=== PATIENT | female | born 1995 | race African-American/Black ===

== ENCOUNTER 2018-06-18 11:45 | Inpatient (IN) | payer MEDICARE, OTHER ==
[~2018-06-18] VITALS: Ht 157.5 cm; Wt 61.0 kg
[2018-06-18] MEDS ORDERED: IV NORMAL SALINE 1,000ML 1,000 ML IV ONE (12:15)
[2018-06-18 12:29] LABS: BASO # 0.1 x10^3/uL (0.0-0.2); BASO % 1 % (0-3); EOS # 1.3 x10^3/uL (0.0-0.7); EOS % 12 % (0-3); HEMATOCRIT 35.9 % (36.0-47.0); HEMOGLOBIN 12.1 g/dL (12.0-15.5); LYMPH # 1.7 x10^3/uL (1.0-4.8); LYMPH % 16 % (24-48); MEAN CORPUSCULAR HEMOGLOBIN 27 pg (25-35); MEAN CORPUSCULAR HGB CONC 34 g/dL (31-37); MEAN CORPUSCULAR VOLUME 81 fL (79-100); MONO # 0.5 x10^3/uL (0.0-1.1); MONO % 5 % (0-9); NEUT # 6.8 x10^3uL (1.8-7.7); NEUT % 66 % (31-73); PLATELET COUNT 354 x10^3/uL (140-400); RED BLOOD COUNT 4.43 x10^6/uL (3.50-5.40); RED CELL DISTRIBUTION WIDTH 14.6 % (11.5-14.5); WHITE BLOOD COUNT 10.3 x10^3/uL (4.0-11.0)
[2018-06-18 12:43] LABS: ALBUMIN/GLOBULIN RATIO 0.8 (1.0-1.7); CREATININE 0.8 mg/dL (0.6-1.0); GFR 89.7; TOTAL BILIRUBIN 0.3 mg/dL (0.2-1.0)
[2018-06-18 12:44] LABS: BILIRUBIN,URINE NEG (NEG); CLARITY,URINE HAZY; COLOR,URINE AMBER; GLUCOSE,URINE NEG (NEG); NITRITE,URINE NEG (NEG); UROBILINOGEN,URINE 1 mg/dL (0.2 mg/dL)
[2018-06-18 12:45] LABS: POTASSIUM 2.1 mmol/L (3.5-5.1)
[2018-06-18 12:45] LABS: BACTERIA,URINE 0 /HPF (0-FEW); HYALINE CASTS, URINE OCC /HPF; RBC,URINE RARE /HPF (0-2); SQUAMOUS EPITHELIAL CELL,UR FEW /LPF
--- NOTE | 2018-06-18 12:46 | PHYS DOC ---
Past History Past Medical History: Seizure, Other Past Surgical History: No Surgical History Alcohol Use: None Drug Use: None Adult General Chief Complaint Chief Complaint: MULTIPLE COMPLAINTS HPI HPI 22-year-old female with special needs presents with change in behavior. Her parents accompany her and provide the entire history. The patient has been "leaning to the left" since waking up this morning. She is leaning so far she is not able to keep her balance. They have not let her walk for fear that she would fall down. She had some minor drooling out of the left side of her mouth, but this seems to have improved at this time. The patient has not acted like this before. She has not been complaining of any specific pain. She is communicating and following their commands at baseline. The patient has had no recent medication changes. She has not had any trauma or falls. She has not had any other symptoms of illness. No fever or chills. Review of Systems Review of Systems Constitutional: Denies fever or chills [] Eyes: Denies change in visual acuity, redness, or eye pain [] HENT: Denies nasal congestion or sore throat [] Respiratory: Denies cough or shortness of breath [] Cardiovascular: No additional information not addressed in HPI [] GI: Denies abdominal pain, nausea, vomiting, bloody stools or diarrhea [] : Denies dysuria or hematuria [] Musculoskeletal: Denies back pain or joint pain [] Integument: Denies rash or skin lesions [] Neurologic: Denies headache, focal weakness or sensory changes. Leaning to the left side [] Endocrine: Denies polyuria or polydipsia [] All other systems were reviewed and found to be within normal limits, except as documented in this note. Current Medications Current Medications Current Medications Medications (Trade) Dose Ordered Sig/[place] Start Time Stop Time Status Last Admin Dose Admin Sodium Chloride 1,000 ml @ 1,000 mls/hr 1X ONCE 06/18/18 12:15 06/18/18 13:14 06/18/18 12:26 1,000 MLS/HR Allergies Allergies Allergies Coded Allergies Type Severity Reaction Last Updated Verified codeine Allergy Unknown 06/18/18 Yes ibuprofen Allergy Unknown 06/18/18 Yes Physical Exam Physical Exam Constitutional: Well developed, well nourished, no acute distress, non-toxic appearance. [] HENT: Normocephalic, atraumatic, bilateral external ears normal, oropharynx moist, no oral exudates, nose normal. [] Eyes: PERRLA, EOMI, conjunctiva normal, no discharge. [] Neck: Normal range of motion [] Cardiovascular:Heart rate regular rhythm, no murmur [] Lungs & Thorax: Bilateral breath sounds clear to auscultation [] Abdomen: Bowel sounds normal, soft, no tenderness, no masses, no pulsatile masses. [] Skin: Warm, dry, no erythema, no rash. [] Back: No tenderness. [] Extremities: No tenderness, no cyanosis, no clubbing, no edema. [] Neurologic: Alert, moves all extremities spontaneously and to command, no focal deficits noted. [] Psychologic: Affect normal, mood normal. [] Current Patient Data Vital Signs Vital Signs Date Time Temp Pulse Resp B/P (MAP) Pulse Ox O2 Delivery O2 Flow Rate FiO2 06/18/18 12:02 98.6 97 18 98 Room Air Lab Results Laboratory Tests Test 06/18/18 12:16 White Blood Count 10.3 x10^3/uL (4.0-11.0) Red Blood Count 4.43 x10^6/uL (3.50-5.40) Hemoglobin 12.1 g/dL (12.0-15.5) Hematocrit 35.9 % (36.0-47.0) L Mean Corpuscular Volume 81 fL (79-100) Mean Corpuscular Hemoglobin 27 pg (25-35) Mean Corpuscular Hemoglobin Concent 34 g/dL (31-37) Red Cell Distribution Width 14.6 % (11.5-14.5) H Platelet Count 354 x10^3/uL (140-400) Neutrophils (%) (Auto) 66 % (31-73) Lymphocytes (%) (Auto) 16 % (24-48) L Monocytes (%) (Auto) 5 % (0-9) Eosinophils (%) (Auto) 12 % (0-3) H Basophils (%) (Auto) 1 % (0-3) Neutrophils # (Auto) 6.8 x10^3uL (1.8-7.7) Lymphocytes # (Auto) 1.7 x10^3/uL (1.0-4.8) Monocytes # (Auto) 0.5 x10^3/uL (0.0-1.1) Eosinophils # (Auto) 1.3 x10^3/uL (0.0-0.7) H Basophils # (Auto) 0.1 x10^3/uL (0.0-0.2) EKG EKG Sinus rhythm, rate 96, normal axis, no ST elevations or depressions, prolonged QTC.[] Radiology/Procedures Radiology/Procedures [] Impressions: EXAM: Head CT without contrast. HISTORY: Mental status changes. TECHNIQUE: Computed tomographic images of the head were obtained without contrast. *One or more of the following individualized dose reduction techniques were utilized for this examination: 1. Automated exposure control. 2. Adjustment of the mA and/or kV according to patient size. 3. Use of iterative reconstruction technique. COMPARISON: None. FINDINGS: There is no acute or subacute extra-axial or intraparenchymal hemorrhage. There is no mass effect or midline shift. There is no hydrocephalus. The espinosa-white matter differentiation pattern is intact. There is focal mucosal thickening or mucous retention cyst within the right aspect of the sphenoid sinus. The mastoid air cells are clear. No calvarial lesion is seen. IMPRESSION: No acute intracranial findings. Electronically signed by: Val Harrington MD (06/18/2018 1:35 PM) [place] [id number] DICTATED AND SIGNED BY: VAL HARRINGTON MD DATE: 06/18/18 1335 CC: GILMER TOVAR DO ~ Course & Med Decision Making Course & Med Decision Making Pertinent Labs and Imaging studies reviewed. (See chart for details) The patient's labs are significant for a potassium of 2.1. We will give her 40 mEq of her placement orally as well as 40 mEq by IV. Her head CT is negative for acute findings. The rest of her labs are unremarkable. Her urinalysis is negative for infection. After further discussion with the parents, I believe will be safest to admit the patient overnight to ensure that her potassium level is corrected and that her symptoms resolved. Parents have agreed with this plan. I discussed the case with Dr. Huitron and he has accepted the patient for admission. [] Dragon Disclaimer Dragon Disclaimer This electronic medical record was generated, in whole or in part, using a voice recognition dictation system. GILMER TOVAR DO Jun 18, 2018 12:46
[2018-06-18] MEDS ORDERED: POTASSIUM CL 40MEQ IN 0.9%NACL 1,000 ML IV ONE ×2 (13:00→17:00)
[2018-06-18] MEDS ORDERED: POTASSIUM CHLORIDE 20 MEQ/15 ML ORAL LIQUID. PO ONE (13:00)
[2018-06-18] MEDS ORDERED: POTASSIUM CHLORIDE 20 MEQ TABLET.ER. PO ONE (13:00)
--- NOTE | 2018-06-18 13:38 | RAD ---
EXAM: Head CT without contrast. HISTORY: Mental status changes. TECHNIQUE: Computed tomographic images of the head were obtained without contrast. *One or more of the following individualized dose reduction techniques were utilized for this examination: 1. Automated exposure control. 2. Adjustment of the mA and/or kV according to patient size. 3. Use of iterative reconstruction technique. COMPARISON: None. FINDINGS: There is no acute or subacute extra-axial or intraparenchymal hemorrhage. There is no mass effect or midline shift. There is no hydrocephalus. The espinosa-white matter differentiation pattern is intact. There is focal mucosal thickening or mucous retention cyst within the right aspect of the sphenoid sinus. The mastoid air cells are clear. No calvarial lesion is seen. IMPRESSION: No acute intracranial findings. Electronically signed by: Val Harkins MD (06/18/2018 1:35 PM) [place] [id number]
[2018-06-18] MEDS ORDERED: ACETAMINOPHEN 325 MG TABLET PO PRN (15:15)
[2018-06-18 16:36] VITALS: BP 135/93
[2018-06-18] MEDS ORDERED: MONT10TA9 PO (16:49)
[2018-06-18] MEDS ORDERED: CLON0.1T PO ×2 (16:49)
[2018-06-18] MEDS ORDERED: VALP250S3 PO (16:49)
[2018-06-18] MEDS ORDERED: LEVE100S18 PO ×2 (16:49)
[2018-06-18] MEDS ORDERED: TRAZ150T49 PO (16:49)
[2018-06-18] MEDS ORDERED: HALO5TAB PO (16:49)
[2018-06-18] MEDS ORDERED: BENZ1TAB5 PO (16:49)
[2018-06-18] MEDS ORDERED: DIAZ5TAB4 PO (16:49)
[2018-06-18 20:00] VITALS: BP 131/85
[2018-06-18] MEDS: traZODone 150 MG TABLET. PO SCH (21:25)
[2018-06-18] MEDS: cloNIDine HCL 0.1 MG TABLET PO SCH (21:25)
[2018-06-18] MEDS: VALPROATE ACID 250 MG/5 ML ORAL SOLUTION PO SCH (21:25)
[2018-06-18] MEDS: diazePAM 5 MG TABLET PO SCH (21:26)
[2018-06-18] MEDS: BENZTROPINE MESYLATE 1 MG TABLET PO SCH (21:26)
[2018-06-18 22:56] VITALS: BP 120/86
[2018-06-19 05:11] VITALS: BP 127/83
[2018-06-19 06:20] LABS: CALCIUM 8.9 mg/dL (8.5-10.1); CREATININE 0.6 mg/dL (0.6-1.0); GFR 151.3
[2018-06-19 06:22] LABS: BASO % 0 % (0-3); EOS # 1.8 x10^3/uL (0.0-0.7); EOS % 22 % (0-3); HEMATOCRIT 34.6 % (36.0-47.0); HEMOGLOBIN 11.5 g/dL (12.0-15.5); LYMPH # 2.6 x10^3/uL (1.0-4.8); LYMPH % 32 % (24-48); MEAN CORPUSCULAR HEMOGLOBIN 27 pg (25-35); MEAN CORPUSCULAR HGB CONC 33 g/dL (31-37); MEAN CORPUSCULAR VOLUME 81 fL (79-100); MONO # 0.6 x10^3/uL (0.0-1.1); MONO % 7 % (0-9); NEUT # 3.2 x10^3uL (1.8-7.7); NEUT % 39 % (31-73); PLATELET COUNT 335 x10^3/uL (140-400); RED BLOOD COUNT 4.26 x10^6/uL (3.50-5.40); RED CELL DISTRIBUTION WIDTH 14.4 % (11.5-14.5); WHITE BLOOD COUNT 8.2 x10^3/uL (4.0-11.0)
[2018-06-19 06:25] LABS: POTASSIUM 2.4 mmol/L (3.5-5.1)
[2018-06-19] MEDS: POTASSIUM CHLORIDE 20 MEQ/15 ML ORAL LIQUID. PO SCH ×6 (08:22→16:00)
[2018-06-19] MEDS: MONTELUKAST 10 MG TABLET. PO SCH (08:22)
[2018-06-19] MEDS: VALPROATE ACID 250 MG/5 ML ORAL SOLUTION PO SCH ×2 (08:23→20:50)
[2018-06-19] MEDS: diazePAM 5 MG TABLET PO SCH ×5 (08:23→20:51)
[2018-06-19] MEDS: cloNIDine HCL 0.1 MG TABLET PO SCH ×3 (08:23→20:51)
[2018-06-19] MEDS: HALOPERIDOL 5 MG TABLET PO SCH ×2 (08:24→15:19)
[2018-06-19 11:02] VITALS: BP 126/87
[2018-06-19] MEDS ORDERED: POTASSIUM CL 40MEQ D5-0.45NACL 1,000 ML IV SCH (15:00)
[2018-06-19 15:11] VITALS: BP 132/89
[2018-06-19 18:16] LABS: CALCIUM 8.7 mg/dL (8.5-10.1); CREATININE 0.7 mg/dL (0.6-1.0); GFR 126.6; POTASSIUM 4.3 mmol/L (3.5-5.1)
[2018-06-19 19:00] VITALS: BP 126/88
--- NOTE | 2018-06-19 19:04 | HP ---
ADMIT DATE: 06/19/2018 HISTORY OF PRESENT ILLNESS: The patient is a 22-year-old -[place] female patient who has moved recently from [place] to live with her sister as her mother has recently . She has mental impairment, does not give any useful information; however, according to her [id number], she normally is able to walk straight although with a very slow pace; however, they noted that she was leaning towards the left side. I contacted her primary care physician at the [place] who recommended that she should be seen in the Emergency Room and she was in fact evaluated in the Emergency Room, had extensive lab work, which showed that her potassium was extremely low at 2.1. However, all other lab works are within acceptable range. She had a CT scan of the head that was unremarkable and she was basically admitted to replenish her potassium. PAST MEDICAL HISTORY: Cognitive impairment as well as seizure disorder. PAST SURGICAL HISTORY: Unremarkable. ALLERGIES: She is allergic to CODEINE, AND IBUPROFEN. MEDICATIONS: She is currently on following medications: She is on clonidine 0.1 mg twice a day, breakfast and lunch and clonidine 2 tablets at bedtime. She is on levetiracetam, she takes 1250 mg daily and 1500 mg at bedtime. She is on valproic acid 2500 mg twice a day, trazodone 450 mg at bedtime. She is on Haldol 5 mg twice a day, diazepam 7.5 mg 4 times a day, benztropine 1 mg at bedtime. She is on montelukast 10 mg daily. FAMILY HISTORY: Her mother was alcoholic and recently. The cause of is not clear. SOCIAL HISTORY: She is single, never , does not smoke, drink alcohol or use any recreational drugs. REVIEW OF SYSTEMS: Unobtainable. PHYSICAL EXAMINATION: GENERAL: On arrival to the Emergency Room, she looked well and was clearly in no apparent respiratory distress, slightly pale, but no jaundice, cyanosis, or thyromegaly. No jugular venous distension. No limb edema. VITAL SIGNS: Her heart rate was 97, blood pressure was 125/75. Her temperature was 98.6, respiratory rate was 18 and oxygen saturation was 98%. HEAD, EYES, EARS, NOSE AND THROAT: Showed normocephalic, atraumatic. NECK: Supple. HEART: Showed normal first and second heart sounds with no gallop, rub or murmur. CHEST: Clear to auscultation. No crepitation or rhonchi. ABDOMEN: Distended, soft, nontender. No guarding or rigidity. No organomegaly. All hernial orifices intact. Bowel sounds normal. NEUROLOGIC: She is awake, alert, seemed to probably able to see, although she does not retract, all her cranial nerves are grossly intact. EXTREMITIES: She moves extremities without difficulty. She continued to have tendency to lean towards the left side. LABORATORY DATA: On admission showed that her white cell count was 10,300, hemoglobin 12, hematocrit 36, MCV 81 and platelet count 354,000. Her chemistry showed a serum sodium 143, potassium 2.1, chloride 102, bicarbonate 33, anion gap of 8, BUN 3, creatinine 0.8, estimated GFR was 90 mL per minute. Her glucose 120, calcium was 9. Total bilirubin, AST, ALT, alkaline phosphatase were normal. Total protein was 7, albumin 3. Her urinalysis showed the urine was hazy with a pH of 7, specific gravity of 1.015. There was small amount of protein, negative for glucose, there was trace of ketones. The urine was negative for blood, nitrite, bilirubin. There was a trace of leukocyte esterase. There are rare rbc's, 5-10 wbc's and very few bacteria. ASSESSMENT AND PLAN: In summary, this is a 22-year-old -[place] female patient who came in with a tendency to lean to the left side, inability to walk. She was found to be extremely hypokalemic with a potassium of She is known to have seizures for which she is on Keppra as well as valproic acid Hypertension as well as protein-calorie malnutrition, transpired that she does not eat any solid food or even at pureed diet, though anything she drinks in a liquid diet and therefore we will also consult our dietitian to assist with her diet. with her diet. We will continue to replenish her potassium both orally IV and I would also consult Dr. Erwin, although her CT scan was normal. Low potassium can cause muscle weakness, but it should not be localized. RAIZA HAN MD DR: OPAL/jatin JOB#: [id number] / [id number]
[2018-06-19] MEDS: BENZTROPINE MESYLATE 1 MG TABLET PO SCH (20:50)
[2018-06-19] MEDS: traZODone 150 MG TABLET. PO SCH (20:50)
[2018-06-19 23:00] VITALS: BP 127/67
--- NOTE | 2018-06-20 00:02 | PN ---
DATE: 06/19/2018 SUBJECTIVE: The patient was admitted yesterday as she was noted by her family to be leaning to the left side. She was extensively investigated in the Emergency Room and found CT scan was unremarkable. Her family denied any witnessed seizure; however, she was found to be profoundly hypokalemic with the potassium of only 2.1. It transpired that she does not eat any solid food or even diet and she only drinks a liquid diet, mostly Ensure and other juices and water, and there was no documented history of nausea, vomiting or diarrhea. She is not on any diuretics. Apparently, according to her [id number], she was found to have hypokalemia before as she used to live with her mom in [place]., She was given oral potassium and IV potassium as her potassium was only 2.1 on arrival and the repeat potassium this morning was still low at 2.4 mEq per liter, although all her kidney functions are normal. PHYSICAL EXAMINATION: GENERAL: When I saw her this afternoon, she was resting, slightly propped up in bed, in no apparent respiratory distress, slightly pale, but no jaundice, cyanosis, or thyromegaly. No jugular venous distension. No lower limb edema. VITAL SIGNS: Her heart rate was 72, blood pressure was 126/87, temperature was 98, respiratory rate was 20, and oxygen saturation was 96%. HEENT: Examination of the head, eyes, ears, nose and throat showed normocephalic, atraumatic. NECK: Supple. HEART: Showed normal first and second sounds. No gallop, rub or murmur. CHEST: Clear to auscultation. No crepitation or rhonchi. ABDOMEN: Distended, soft, nontender. NEUROLOGIC: She is nonverbal, but all her cranial nerves seem to be grossly intact. EXTREMITIES: She moves her extremities spontaneously, although she continued to even in bed to lean towards the left side, although she does not show any evidence of localized weakness. LABORATORY DATA: Her lab work this morning showed a white cell count of 8200, hemoglobin 11.5, hematocrit 34, MCV 81, and platelet count of 335,000. Her chemistry showed a serum sodium 146, potassium 2.4, chloride 110, bicarbonate 29, anion gap of 7, BUN 1, creatinine 0.6, estimated GFR was 151 mL per minute. Her glucose was 80, calcium was 8.9. ASSESSMENT AND PLAN: 1. Profound hypokalemia, most likely due to severe inadequate potassium in her diet as she is not taking any solid food or even a pureed diet. 3. Recent tendency to lean towards the left side, although the CT scan was normal and hypokalemic with generalized weakness. 3. Seizure disorder, whether she has recent seizure or this is a manifestation of ____ difficult to know. 4. Cognitive impairment. 5. Protein-calorie malnutrition. Her serum albumin is only 3 g/dL, so I did consult with the dietitian and neurologist, Dr. Erwin, who will continue to replenish her potassium with orally and IV. We will repeat her lab work this afternoon and again tomorrow morning. RAIZA HAN MD DR: OPAL/jatin JOB#: [id number] / [id number]
[2018-06-20 05:00] VITALS: BP 132/84
[2018-06-20 07:07] LABS: CALCIUM 9.3 mg/dL (8.5-10.1); CREATININE 0.6 mg/dL (0.6-1.0); GFR 151.3; POTASSIUM 3.5 mmol/L (3.5-5.1)
[2018-06-20] MEDS: VALPROATE ACID 250 MG/5 ML ORAL SOLUTION PO SCH ×2 (09:39→20:56)
[2018-06-20] MEDS: cloNIDine HCL 0.1 MG TABLET PO SCH ×3 (09:39→20:58)
[2018-06-20] MEDS: MONTELUKAST 10 MG TABLET. PO SCH (09:40)
[2018-06-20] MEDS: diazePAM 5 MG TABLET PO SCH ×4 (09:40→20:57)
[2018-06-20] MEDS: HALOPERIDOL 5 MG TABLET PO SCH ×2 (09:40→15:06)
[2018-06-20] MEDS: POTASSIUM CHLORIDE 20 MEQ TABLET.ER. PO SCH ×3 (12:12→20:55)
[2018-06-20 12:27] VITALS: BP 115/81
[2018-06-20 15:00] VITALS: BP 125/87
[2018-06-20 19:00] VITALS: BP 131/92
--- NOTE | 2018-06-20 20:09 | PN ---
DATE: 06/20/2018 SUBJECTIVE: The patient was admitted yesterday as her family, her sister and [id number] noted that she has tendency to lean to the left side. She was evaluated in the Emergency Room, she was found to have profound hypokalemia with the potassium was only 2.1. Her CT scan was unremarkable and we did replenish her potassium. In fact, her potassium yesterday was up to 4.3, although this morning it dropped down to 3.4. She was evaluated by the physical therapist and apparently she is able to walk, but still has a tendency lean to the left side. She is on a lot of medications, she takes diazepam 7.5 mg 4 times a day and she is also on Haldol 5 mg twice a day and I am wondering whether this is contributing to her perhaps ataxia in coordination, I did consult Dr. Erwin for her to see her. I do not know whether she would require also an MRI. When I saw her this morning, she was resting slightly propped up, sleeping comfortably in bed, in no apparent distress. Her sister denied any complaint. OBJECTIVE: GENERAL: When I examined her, she was slightly pale, but no jaundice, cyanosis, or thyromegaly. No jugular venous distension. No lower limb edema. VITAL SIGNS: Her heart rate was 78, blood pressure 132/84, temperature was 97.6, respiratory rate 20, and oxygen saturation was 94%. HEENT: Examination of the head, eyes, ears, nose and throat showed normocephalic, atraumatic. NECK: Supple. HEART: Showed normal first and second heart sounds. No gallop, rub or murmur. CHEST: Clear to auscultation. No crepitation or rhonchi. ABDOMEN: Was scaphoid, soft, nontender. NEUROLOGIC: She is sleepy, but arousable. All her cranial nerves are grossly intact. EXTREMITIES: She moves her extremities without difficulty. According to her family, she is able to walk without a walker. Her intake over the last 24 hours was 2100, output was 350. LABORATORY DATA: Her lab work this morning showed a serum sodium 144, potassium 3.5, chloride 110, bicarbonate 27, anion gap of 7, BUN 1, creatinine 0.6, estimated GFR was 151 mL per minute. Her glucose 77 and calcium was 9.3. Her white cell count was 8200, hemoglobin 11, hematocrit 35, MCV 81, and platelet count of 335,000. ASSESSMENT: 1. Profound hypokalemia, most likely severe and inadequate potassium intake as she lives actually on liquid, does not take any solids or even pureed diet. 2. Recent tendency to lean towards the left side, although a CT scan was normal, hypokalemia ____ generalized weakness. 3. Seizure disorder and then family are not aware of any recent seizure. 4. Cognitive impairment. 5. Protein-calorie malnutrition, serum albumin is only 3 g/dL. PLAN: My plan is to continue with potassium supplement, I started him 40 mEq 3 times a day. She actually received a total of more than 160 mEq yesterday and her potassium dropped down again from 4.3-3.5. If we check it again tomorrow and might have to add spironolactone and I did consult dietitian. Unfortunately, she was not available yesterday. RAIZA HAN MD DR: OPAL/jatin JOB#: [id number] / [id number]
[2018-06-20] MEDS: traZODone 150 MG TABLET. PO SCH (20:56)
[2018-06-20] MEDS: BENZTROPINE MESYLATE 1 MG TABLET PO SCH (20:57)
[2018-06-20 23:00] VITALS: BP 124/79
--- NOTE | 2018-06-21 03:24 | PN ---
DATE: 06/20/2018 SUBJECTIVE: The patient has not had any new medical or neurological complaints. She slept and ate well. No recent falls or injuries. No breakthrough seizure. OBJECTIVE: GENERAL: Well-developed, well-nourished -[place] female, not in acute distress. VITAL SIGNS: Blood pressure 150/81, respiratory rate 20, pulse is 75, temperature is 97.6, oxygen saturation is 94% on room air. HEENT: Normocephalic, atraumatic, otherwise unremarkable. NECK: Supple. Negative for carotid bruit, lymphadenopathy or thyromegaly. LUNGS: Clear to A and P. CARDIOVASCULAR: Regular rhythm, normal S1, S2. ABDOMEN: Soft. Bowel sounds positive. EXTREMITIES: Negative for cyanosis, clubbing or pitting edema. NEUROLOGICAL EXAM: 1. Mental Status: The patient is alert, follow 1-step commands. She does not communicate. She keeps her eyes closed during the interview. She appears to be somewhat anxious. 2. Cranial nerves: No facial, motor or sensory deficit. Hearing appears to be intact, otherwise unchanged. 3. Motor examination: No focal or muscle bulk was seen. The tone is normal. The strength is 4/5 throughout. Sensory examination revealed normal pinprick and light touch senses throughout. Deep tendon reflexes were symmetric and hypoactive without pathology responses. Gait: The patient appears to be walking better than yesterday and in no obvious tilting to the left side today. IMPRESSION: 1. Long history of cognitive dysfunction. 2. Recent gait disturbance-improved. 3. Multiple medical problems include hypertension, seizure disorder, urinary tract infections. 4. Multiple psychiatric problems include depressions, anxiety, bipolar disorder, and possible autism. RECOMMENDATIONS: Continue with current home medications and continue with her treatment initiated by Dr. Huitron. The patient is neurologically stable. M Marc BLAS MD DR: KAELYN/jatin JOB#: [id number] / [id number]
--- NOTE | 2018-06-21 04:24 | CONS ---
DATE OF CONSULTATION: 06/19/2018 NEUROLOGIC CONSULTATION REFERRING PHYSICIAN: Dr. Huitron. REASON FOR CONSULTATION: Difficulty to walk and tendency to fall. HISTORY OF PRESENT ILLNESS: This is a 22-year-old right-handed female was admitted through Emergency Room on account of having difficulty to communicate, mental status changes in the last few days along with a tendency to fall as she has been tilting to the left side during walking. The patient has been requiring a special need and possible has baseline cognitive dysfunction, therefore she is not able to communicate and provide any history; however, her [id number]-yrg was present in the room and told me that she has had mental status changes in the last 24 hours. She has been under extreme stress as her mother 2 weeks ago. The patient is a resident of [place] and she moved recently to live with her sister. She has had a history of seizure disorder, but apparently she has not been witnessed having seizure prior to this admission. The patient was evaluated in the Emergency Room and had extensive blood workup, which revealed significant low potassium in her system. Initial nonenhanced head CT scan revealed no evidence of acute intracranial process. There is no reported history of recent head injuries or fall or recent illnesses. PAST MEDICAL HISTORY: Significant for cognitive dysfunction and a history of a seizure disorder. She has not had a seizure over the last several years. Hypertension, colitis, urinary tract infections, multiple psychiatric problems include depressions, anxiety, and possible autism. SOCIAL HISTORY: The patient has no history of smoking, alcohol drinking, or illicit drug use. FAMILY HISTORY: Noncontributory. However, her mother was alcoholic and she recently, probably from complication of liver disease secondary to alcoholism. Her mother had hypertension and cirrhosis of the liver. She from cardiac arrest and had alcohol abuse. CURRENT MEDICATIONS: Potassium 40 mEq t.i.d., ____ daily, levetiracetam 1250 mg p.o. twice daily, haloperidol 5 mg b.i.d. for psychotic features, clonidine 0.1 mg daily, valproic acid 500 mg b.i.d., trazodone 450 mg at bedtime, Cogentin 1 mg at bedtime, clonidine 0.2 mg at bedtime, diazepam 7.5 mg 4 times daily. ALLERGIES: IBUPROFEN AND CODEINE. REVIEW OF SYSTEMS: A 10-point review of system was performed as mentioned above in history of present illness. PHYSICAL EXAMINATION: GENERAL: Well-developed and well-nourished -British female, not in acute distress. She weighs 134.5 pounds. VITAL SIGNS: Blood pressure 126/88, respiratory rate 20, pulse is 86 and regular, temperature is 97.9, and oxygen saturation 99% on room air. HEENT: Normocephalic and atraumatic, otherwise unremarkable. NECK: Supple. Negative for carotid bruit, lymphadenopathy or thyromegaly. LUNGS: Clear to A and P. CARDIOVASCULAR: Regular rhythm, normal S1, S2. There is no S3, S4, or murmur. ABDOMEN: Soft. Bowel sounds positive. EXTREMITIES: Negative for cyanosis, clubbing or pitting edema. NEUROLOGIC: The patient is alert, follows 1-step commands, but unable to see or communicate. Memory, judgment, and abstract thinking are poor. Cranial nerves: The patient does not open her eyes. There is no obvious facial asymmetry. The rest of the cranial nerves are difficult to evaluate at this time. Motor: No focal muscle bulk was seen. The tone was normal. The strength was 4/5 throughout. Sensory: Sensory examination revealed normal pinprick and light touch senses throughout. Deep tendon reflexes were symmetric and hypoactive with absent Achilles responses. Gait: The tandem gait is difficult. The patient does not open eyes when she moves and had tendency to fall as she sometimes walks fast. However, the patient was given diazepam 2 hours prior to this evaluation. LABORATORY DATA: CBC revealed white cells of 8200, hemoglobin 11.5, hematocrit 34.6, and platelet count 335,000. Chemistry revealed sodium of 141, potassium 4.3, chloride 109, CO2 of 25, BUN 1, creatinine 0.7, glucose 75, and calcium 8.7. Urinalysis is trace urinary leukocyte esterase with white blood cells of 5-10 and 0 bacteria. Initial nonenhanced head CT scan revealed no acute intracranial process and no evidence of hydrocephalus or other pathology. However, it showed some retention cyst in the right aspect of the sphenoid sinus. IMPRESSION: 1. Long history of cognitive dysfunction. 2. Abnormal gait and tendency to fall; however, the symptoms have improved since admission. Two hours prior to this evaluation, the patient was given Valium. 3. Multiple psychiatric problems including depression and anxiety. 4. Mild anemia of chronic type, hypokalemia - corrected, history of seizure disorder and no recent breakthrough seizure. 5. Recent urinary tract infections. 6. Depression, anxiety, bipolar disorder, and hypertension. RECOMMENDATIONS: 1. Continue with current management initiated by Dr. Huitron. 2. Physical therapy and evaluate her gait. 3. We will continue with current home medications and avoid excessive use of diazepam as possible. M Marc BLAS MD DR: KAELYN/jatin JOB#: [id number] / [id number]
[2018-06-21 05:00] VITALS: BP 125/84
[2018-06-21] MEDS: VALPROATE ACID 250 MG/5 ML ORAL SOLUTION PO SCH (09:21)
[2018-06-21] MEDS: diazePAM 5 MG TABLET PO SCH ×2 (09:21→12:00)
[2018-06-21] MEDS: POTASSIUM CHLORIDE 20 MEQ TABLET.ER. PO SCH ×2 (09:22→13:04)
[2018-06-21] MEDS: HALOPERIDOL 5 MG TABLET PO SCH (09:24)
[2018-06-21] MEDS: cloNIDine HCL 0.1 MG TABLET PO SCH ×2 (09:24→12:00)
[2018-06-21] MEDS: MONTELUKAST 10 MG TABLET. PO SCH (09:27)
[2018-06-21 11:05] VITALS: BP 103/65
[2018-06-21 11:44] LABS: CALCIUM 10.1 mg/dL (8.5-10.1); CREATININE 0.6 mg/dL (0.6-1.0); GFR 151.3; MAGNESIUM 1.9 mg/dL (1.8-2.4); POTASSIUM 4.6 mmol/L (3.5-5.1)
[2018-06-21 12:00] VITALS: BP 103/65
[2018-06-21] MEDS ORDERED: POTA20TA4 PO (12:22)
--- NOTE | 2018-06-21 12:49 | PN ---
DATE: 06/21/2018 SUBJECTIVE: The patient is autistic. She has no new medical or neurological complaints reported. OBJECTIVE: GENERAL APPEARANCE: Well-developed, well-nourished -Maltese female, not in acute distress. VITAL SIGNS: Blood pressure 103/65, respiratory rate 18, pulse is 88 with a temperature 97.4, oxygen saturation is 89%. HEENT: Normocephalic, atraumatic, otherwise unremarkable. NECK: Supple. Negative for carotid bruit, lymphadenopathy or thyromegaly. LUNGS: Clear to A and P. CARDIOVASCULAR: Regular rhythm, normal S1, S2. ABDOMEN: Soft, bowel sounds positive. EXTREMITIES: Negative for cyanosis, clubbing or edema. NEUROLOGIC: Mental status: The patient is autositic. She follows 1-step commands. She opens eyes to the verbal commands, but she is not cooperative with eye examination. There is no facial motor or sensory deficit. Hearing appears to be intact. The palate elevated symmetrically. Sternocleidomastoid muscles are powerful bilaterally. The patient showed facial dissymmetry, protrudes her tongue in midline without fasciculation or atrophy. Motor examination: No focal muscle bulk was seen. The tone is normal. Strength is 5/5 throughout. Sensory examination revealed normal pinprick and light touches throughout. Deep tendon reflexes symmetric and active without pathology responses. Gait is normal. LABORATORY DATA: Chemistry revealed sodium 139, potassium 4.6, chloride 108, CO2 of 23, BUN 3, creatinine 0.6, glucose is 101 and calcium 10.1, magnesium 1.9. IMPRESSION: 1. History of autism and recent mental status changes. 2. Medical problems include hypertension, seizure disorder and urinary tract infections. 3. Multiple psychiatric problems include depression, anxiety and bipolar. RECOMMENDATION: 1. Continue with current management as initiated by Dr. Huitron. 2. The patient is neurologically stable and no further neurological evaluation is needed. M Marc BLAS MD DR: KAELYN/jatin JOB#: [id number] / [id number]
--- NOTE | 2018-06-21 13:00 | DS ---
DATE OF DISCHARGE: 06/21/2018 HOSPITAL COURSE: The patient is a 22-year-old -[place] female patient, who was brought by her sister and [id number] to the Emergency Room as she has tendency to lean towards the left side. She was extensively investigated in the Emergency Room. CT scan and clinical exam was unremarkable; however, she was found to be profoundly hypokalemic with potassium of 2.1. She only drinks liquids, does not eat any solids or even pureed diet; however, she is not on any diuretics. There is no history of nausea, vomiting or diarrhea. She is not on any diuretics. We started her on IV fluid with potassium as well as oral and her potassium is gradually risen from 2.1-2.4-4.3, dropped down to 3.5 and yesterday we gave her 40 mEq 3 times a day and her potassium early this morning to 4.6 mEq per liter. She was seen by the physical therapist and she has been able to walk. Her other lab work seems to be stable. She is on large amount of diazepam and apparently the family was instructed to taper it down slowly. She seemed to be excessively sedated at times. PHYSICAL EXAMINATION: GENERAL: When I saw her this morning, she was resting, slightly propped up in bed, sleeping comfortably. She is pale, but no jaundice or cyanosis. No lymphadenopathy, no thyromegaly. No jugular venous distention. No limb edema. VITAL SIGNS: Her heart rate was 80, blood pressure 103/65, temperature was 97.4, respiratory rate was 18 and oxygen saturation was 99%. HEAD, EYES, EARS, NOSE AND THROAT: Normocephalic, atraumatic. NECK: Supple. HEART: Showed normal first and second sounds. No gallop, rub or murmur. CHEST: Clear to auscultation. No crepitation or rhonchi. ABDOMEN: Distended, soft, nontender. NEUROLOGIC: She has cognitive impairment; however, all her cranial nerves intact. She moves extremities without difficulty. She ambulates without assistance. Her intake over the last 24 hours was 1430. No output was recorded. LABORATORY DATA: This morning showed a serum sodium 139, potassium 4.6, chloride 108, bicarbonate 23, anion gap of 8, BUN 3, creatinine 0.6, estimated GFR was 151 mL per minute. Her glucose was 101. Calcium was 10.1 and magnesium was 1.9. Her white cell count was 8200, hemoglobin 11.5, hematocrit 34.6, MCV 81 and platelet count of 335,000. Her urinalysis was essentially unremarkable. CT scan of the head showed that there is no acute or subacute extraaxial intraparenchymal hemorrhage. There is no mass effect or midline shift. There is no hydrocephalus. The espinosa white matter differentiation pattern is intact. There is focal mucosal thickening or mucus retention cyst within the right aspect of the sphenoid sinus. The mastoid air cells are clear. No calvarial lesion is seen. As her potassium has normalized, the decision was made to be discharged home with her family to continue on liquid potassium 20 mEq 3 times a day together with her other medications that include benztropine mesylate 1 mg at bedtime, clonidine 0.1 mg with breakfast and lunch and clonidine 2 tablets at bedtime, diazepam 5 mg take one and a half tablet 4 times a day, haloperidol 5 mg twice a day, Keppra 1250 mg daily and 1500 mg at bedtime, montelukast sodium 10 mg once a day, trazodone 150 mg at bedtime, valproic acid 2500 mg twice a day. FINAL DISCHARGE DIAGNOSES: 1. Profound hypokalemia, most likely due to inadequate potassium intake as she lives only on liquids and does not take any solids or even pureed diet. 2. Recent tendency to lean towards the left side, although the CT scan was normal. 3. Hypokalemia. No major cause, generalized weakness. 4. Seizure disorder, for which she is on Depakote as well as Keppra. 5. Cognitive impairment. 6. Protein calorie malnutrition with serum albumin is only 3 g/dL. The patient was given a prescription for liquid potassium and the family was encouraged to arrange for her to have a primary care physician to monitor her electrolytes closely. RAIZA HAN MD DR: OPAL/jatin JOB#: [id number] / [id number]
== END 2018-06-21 13:20 | disposition home or self-care (01) | DRG 641 ==
LOC: ER 11:45 → 1 SOUTH 16:14
PROVIDERS: ADMIT Internal Medicine; ATTEND Internal Medicine
DX: E87.6 Hypokalemia (principal); E46 Unspecified protein-calorie malnutrition; F84.0 Autistic disorder; D64.9 Anemia, unspecified; F31.9 Bipolar disorder, unspecified; F41.9 Anxiety disorder, unspecified; G40.909 Epilepsy, unspecified, not intractable, without status epilepticus; I10 Essential (primary) hypertension; R41.89 Other symptoms and signs involving cognitive functions and awareness; Z82.41 Family history of sudden cardiac death; Z82.49 Family history of ischemic heart disease and other diseases of the circulatory system; Z88.5 Allergy status to narcotic agent; Z88.8 Allergy status to other drugs, medicaments and biological substances; Z81.1 Family history of alcohol abuse and dependence; Z68.24 Body mass index [BMI] 24.0-24.9, adult; Z87.440 Personal history of urinary (tract) infections
CPT/HCPCS: 36415; 70450; 80048; 80053; 81001; 83735; 85025; 87086; 90471; 90756; 96361; 96365; J7042; 99285-25; J7030; Q2035

== ENCOUNTER → 2018-07-02 | Outpatient (CLI) | payer MEDICARE, OTHER ==
[2018-06-21 12:00] VITALS: BP 103/65
[~2018-07-02] MED LIST: BENZ1TAB5 PO; CLON0.1T PO; DIAZ5TAB4 PO; HALO5TAB PO; LEVE100S18 PO; MONT10TA9 PO; POTA20TA4 PO; TRAZ150T49 PO; VALP250S3 PO
[2018-07-02 10:59] LABS: BASO % 1 % (0-3); EOS # 0.5 x10^3/uL (0.0-0.7); EOS % 8 % (0-3); HEMATOCRIT 38.3 % (36.0-47.0); HEMOGLOBIN 12.8 g/dL (12.0-15.5); LYMPH # 2.7 x10^3/uL (1.0-4.8); LYMPH % 45 % (24-48); MEAN CORPUSCULAR HEMOGLOBIN 28 pg (25-35); MEAN CORPUSCULAR HGB CONC 33 g/dL (31-37); MEAN CORPUSCULAR VOLUME 83 fL (79-100); MONO # 0.4 x10^3/uL (0.0-1.1); MONO % 6 % (0-9); NEUT # 2.4 x10^3uL (1.8-7.7); NEUT % 40 % (31-73); PLATELET COUNT 243 x10^3/uL (140-400); RED BLOOD COUNT 4.64 x10^6/uL (3.50-5.40); RED CELL DISTRIBUTION WIDTH 14.3 % (11.5-14.5); WHITE BLOOD COUNT 5.9 x10^3/uL (4.0-11.0)
[2018-07-02 11:15] LABS: ALBUMIN 3.5 g/dL (3.4-5.0); ALBUMIN/GLOBULIN RATIO 0.9 (1.0-1.7); CALCIUM 9.3 mg/dL (8.5-10.1); CREATININE 0.9 mg/dL (0.6-1.0); GFR 94.7; MAGNESIUM 2.2 mg/dL (1.8-2.4); POTASSIUM 4.6 mmol/L (3.5-5.1); TOTAL BILIRUBIN 0.2 mg/dL (0.2-1.0); TOTAL PROTEIN 7.6 g/dL (6.4-8.2)
[2018-07-02 12:05] LABS: SEDIMENTATION RATE 6 (0-25)
== END | disposition home or self-care (01) ==
LOC: LAB 10:21
PROVIDERS: ATTEND Family Medicine
DX: G40.309 Generalized idiopathic epilepsy and epileptic syndromes, not intractable, without status epilepticus (principal); K51.80 Other ulcerative colitis without complications
CPT/HCPCS: 36415; 80053; 83735; 85025; 85651

== ENCOUNTER 2019-11-22 16:45 | Emergency (ER) | payer OTHER ==
[~2019-11-22] VITALS: Ht 157.5 cm; Wt 63.2 kg
[~2019-11-22 16:45] MED LIST changes: +MONT10TA80 PO; -MONT10TA9 PO
[2019-11-22] MEDS ORDERED: IV NORMAL SALINE 1,000ML 1,000 ML IV SCH (17:14)
[2019-11-22] MEDS ORDERED: ONDANSETRON PF 4 MG/2 ML VIAL. IVP ONE (17:15)
--- NOTE | 2019-11-22 17:28 | PHYS DOC ---
Past History Past Medical History: Hypertension, Seizure, Other Additional Past Medical Histor: autism (CAROLNY MEJIA Jr. DO) Past Surgical History: No Surgical History (CAROLYN MEJIA Jr., DO) Alcohol Use: None Drug Use: None (CAROLYN MEJIA Jr., DO) Adult General Chief Complaint Chief Complaint: ALTERED MENTAL STATUS HPI HPI Patient is a 23-year-old autistic female who presents with report of suspected right abdominal/flank pain that started yesterday. Parents indicate that patient was noted to be leaning over to her right side and moaning in symptoms reportedly had gotten worse today. Patient is nonverbal and is not able to provide any history. Patient right now is somewhat sedated on her normal medications. Additional history is limited due to nonverbal status.[] (CAROLYN MEJIA Jr., DO) Review of Systems Review of Systems Constitutional: No reported fever or chills [] Respiratory: Denies cough or shortness of breath [] Cardiovascular: No additional information not addressed in HPI [] GI: Positive suspected abdominal pain without vomiting or diarrhea [] Integument: Denies rash or skin lesions [] Neurologic: No reported focal weakness or sensory changes [] Unable to fully assess review of systems due to patient condition/nonverbal status. (CAROLYN MEJIA Jr., DO) Current Medications Current Medications Current Medications Medications (Trade) Dose Ordered Sig/[place] Start Time Stop Time Status Last Admin Dose Admin Ondansetron HCl (Zofran) 4 mg 1X ONCE 11/22/19 17:15 11/22/19 17:16 DC Sodium Chloride 1,000 ml @ 1,000 mls/hr Q1H 11/22/19 17:14 11/22/19 18:13 (CAROLYN MEJIA Jr., DO) Allergies Allergies Allergies Coded Allergies Type Severity Reaction Last Updated Verified codeine Allergy Intermediate 11/22/19 Yes ibuprofen Allergy Intermediate 11/22/19 Yes (CAROLYN MEJIA Jr., DO) Physical Exam Physical Exam Constitutional: Well developed, well nourished, no acute distress, non-toxic appearance. [] HENT: Normocephalic, atraumatic, bilateral external ears normal, oropharynx mois t, no oral exudates, nose normal. [] Eyes: PERRLA, EOMI, conjunctiva normal, no discharge. [] Neck: Normal range of motion, no tenderness, supple, no stridor. [] Cardiovascular: Regular rate and rhythm[] Lungs & Thorax: Bilateral breath sounds clear to auscultation [] Abdomen: Bowel sounds diminished, soft, with no apparent tenderness. [] Skin: Warm, dry, no erythema, no rash. [] Extremities: No tenderness, no cyanosis, no clubbing, ROM intact, no edema. [] Neurologic: Somnolent but arousable, no focal deficits noted. [] (CAROLYN MEJIA Jr., DO) Current Patient Data Vital Signs Vital Signs Date Time Temp Pulse Resp B/P (MAP) Pulse Ox O2 Delivery O2 Flow Rate FiO2 11/22/19 17:02 98.9 68 17 123/87 (99) 99 Room Air (CAROLYN MEJIA Jr., DO) EKG EKG [] (CAROLYN MEJIA Jr., DO) Radiology/Procedures Radiology/Procedures [] (CAROLYN MEJIA Jr., DO) Impressions: Exam: CT of abdomen and pelvis with contrast INDICATION: Right-sided abdominal pain TECHNIQUE: Sequential axial images through the abdomen and pelvis obtained following the administration of 75 mL of Omni 300 IV contrast. Sagittal and coronal reformatted images were reconstructed from the axial data and reviewed. Comparisons: None FINDINGS: Heart size is normal. No pericardial effusion. There is a 7 mm nodule in the lingula series 2 image 69. No pleural effusion. Liver, spleen, pancreas, gallbladder and adrenals are unremarkable. No perinephric inflammation or hydronephrosis. Kidneys demonstrate symmetric enhancement. There is a nonobstructing 5 mm calculus at the lower pole of the left kidney. No ureteral calculi. Bladder is distended and appears thin-walled. Uterus is not enlarged. No abnormal adnexal mass. Large and small bowel are unremarkable. Appendix is normal. No free intra-abdominal air or fluid. No obstruction. Abdominal aorta has a normal course and caliber. Abdominal vasculature is patent. No enlarged intra-abdominal lymph nodes are identified. No suspicious osseous lesions or acute fractures. IMPRESSION: 1. Nonobstructing calculus in the left kidney. No ureteral calculi or evidence for obstructive uropathy. 2. A 7 mm nodule in the lingula as described above. 6 month follow-up chest CT is recommended to reassess. Exposure: One or more of the following in the visualized dose reduction techniques were utilized for this examination: 1. Automated exposure control 2. Adjustment of the MA and/or KV according to patient size 3. Use of iterative of reconstructive technique Electronically signed by: Daniel Harris MD (11/22/2019 8:38 PM) [id number] DICTATED AND SIGNED BY: DANIEL HARRIS MD DATE: 11/22/192037 CC: CAROLYN MEJIA Jr. DO; IRVIN JERRY MD; GILMER TOVAR DO ~ (GILMER TOVAR DO) Course & Med Decision Making Course & Med Decision Making Pertinent Labs and Imaging studies reviewed. (See chart for details) [] (CAROLYN MEJIA Jr., DO) Course & Med Decision Making The patient's labs, urinalysis, and CT scan are negative for acute findings. There is a stone in the left kidney, but it is not obstructing. There are no stones in the ureters. There is a nodule in the lung that is recommended to be followed up. See official report for details. I do not see any evidence that would suggest the patient needs further surgical evaluation for her discomfort. She is stable for discharge at this time (GILMER TOVAR DO) Dragon Disclaimer Dragon Disclaimer This electronic medical record was generated, in whole or in part, using a voice recognition dictation system. (CAROLYN MEJIA Jr., DO) Departure Departure: Impression: Primary Impression: Right lower quadrant pain Additional Impressions: Nephrolithiasis Lung nodule Disposition: HOME, SELF-CARE Condition: STABLE Referrals: IRVIN JERRY MD (PCP) Patient Instructions: Abdominal Pain, [id number]-Qbvj Problem Qualifiers CAROLYN MEJIA Jr., DO Nov 22, 2019 17:28 GILMER OTVAR DO Nov 22, 2019 20:56
[2019-11-22 18:13] LABS: CALCIUM 8.9 mg/dL (8.5-10.1); CREATININE 0.8 mg/dL (0.6-1.0); GFR 107.6; POTASSIUM 3.8 mmol/L (3.5-5.1)
[2019-11-22 18:18] LABS: BASO % 0 % (0-3); EOS # 0.3 x10^3/uL (0.0-0.7); EOS % 4 % (0-3); HEMATOCRIT 35.6 % (36.0-47.0); HEMOGLOBIN 11.6 g/dL (12.0-15.5); LYMPH # 1.7 x10^3/uL (1.0-4.8); LYMPH % 22 % (24-48); MEAN CORPUSCULAR HEMOGLOBIN 29 pg (25-35); MEAN CORPUSCULAR HGB CONC 33 g/dL (31-37); MEAN CORPUSCULAR VOLUME 88 fL (79-100); MONO # 0.5 x10^3/uL (0.0-1.1); MONO % 7 % (0-9); NEUT # 5.2 x10^3uL (1.8-7.7); NEUT % 67 % (31-73); PLATELET COUNT 217 x10^3/uL (140-400); RED BLOOD COUNT 4.07 x10^6/uL (3.50-5.40); RED CELL DISTRIBUTION WIDTH 14.4 % (11.5-14.5); WHITE BLOOD COUNT 7.8 x10^3/uL (4.0-11.0)
[2019-11-22 18:19] LABS: ALBUMIN 3.5 g/dL (3.4-5.0); TOTAL BILIRUBIN 0.2 mg/dL (0.2-1.0)
[2019-11-22 18:49] LABS: CLARITY,URINE CLOUDY; COLOR,URINE AMBER; GLUCOSE,URINE NEG (NEG)
[2019-11-22 18:50] LABS: BACTERIA,URINE 0 /HPF (0-FEW); BILIRUBIN,URINE NEG (NEG); NITRITE,URINE NEG (NEG); SQUAMOUS EPITHELIAL CELL,UR OCC /LPF
[2019-11-22] MEDS ORDERED: IOHEXOL 300 MG/ML 75 ML VIAL. IV ONE (19:15)
--- NOTE | 2019-11-22 20:41 | RAD ---
Exam: CT of abdomen and pelvis with contrast INDICATION: Right-sided abdominal pain TECHNIQUE: Sequential axial images through the abdomen and pelvis obtained following the administration of 75 mL of Omni 300 IV contrast. Sagittal and coronal reformatted images were reconstructed from the axial data and reviewed. Comparisons: None FINDINGS: Heart size is normal. No pericardial effusion. There is a 7 mm nodule in the lingula series 2 image 69. No pleural effusion. Liver, spleen, pancreas, gallbladder and adrenals are unremarkable. No perinephric inflammation or hydronephrosis. Kidneys demonstrate symmetric enhancement. There is a nonobstructing 5 mm calculus at the lower pole of the left kidney. No ureteral calculi. Bladder is distended and appears thin-walled. Uterus is not enlarged. No abnormal adnexal mass. Large and small bowel are unremarkable. Appendix is normal. No free intra-abdominal air or fluid. No obstruction. Abdominal aorta has a normal course and caliber. Abdominal vasculature is patent. No enlarged intra-abdominal lymph nodes are identified. No suspicious osseous lesions or acute fractures. IMPRESSION: 1. Nonobstructing calculus in the left kidney. No ureteral calculi or evidence for obstructive uropathy. 2. A 7 mm nodule in the lingula as described above. 6 month follow-up chest CT is recommended to reassess. Exposure: One or more of the following in the visualized dose reduction techniques were utilized for this examination: 1. Automated exposure control 2. Adjustment of the MA and/or KV according to patient size 3. Use of iterative of reconstructive technique Electronically signed by: Daniel Henley MD (11/22/2019 8:38 PM) [id number]
[2019-11-22 20:59] VITALS: BP 151/98
== END 2019-11-22 21:04 | disposition home or self-care (01) ==
LOC: ER 16:45
DX: N20.0 Calculus of kidney (principal); R91.1 Solitary pulmonary nodule; I10 Essential (primary) hypertension; Z88.5 Allergy status to narcotic agent; Z88.6 Allergy status to analgesic agent
CPT/HCPCS: 36415; 74177; 80053; 81001; 82550; 83690; 85025; 96374; 99285; J2405; Q9967; J7030

== ENCOUNTER → 2020-04-05 | Outpatient (CLI) | payer OTHER ==
[~2020-04-05] MED LIST changes: +BALS750C6 PO; +DIAZ5TAB PO; +LEVE100S8 PO; +POTA10TA32 PO; +TRAZ-120 PO; +VALP500S PO
== END | disposition home or self-care (01) ==
LOC: LAB 08:30
PROVIDERS: ATTEND Nurse Anesthetist, Certified Registered
DX: Z01.818 Encounter for other preprocedural examination (principal); Z11.59 Encounter for screening for other viral diseases
CPT/HCPCS: 36415; U0003

== ENCOUNTER → 2020-04-07 | Day surgery (SDC) | payer MEDICARE, OTHER ==
[~2020-04-07] MED LIST changes: +IPRATRPIUM/ALBUTEROL 0.5/2.5MG 3 ML NEBU. NEB PRN; +IV RINGERS SOLUTION,LACTATED 1,000 ML IV SCH; +MIDAZOLAM HCL PF 2 MG/2 ML VIAL. IV ONE; +PROPOFOL 10,000 MCG/ML (20ML) VIAL IV ONE
[2020-04-07 13:16] VITALS: BP 112/75
--- NOTE | 2020-04-11 18:09 | PATHOLOGY ---
[facility] Accession Number: [id number] . 01 Material submitted: . PART A: colon - RIGHT COLON RANDOM BX. Modifiers: right PART B: colon - TRANSVERSE COLON RANDOM. Modifiers: transverse PART C: colon - DESCENDING COLON RANDOM. Modifiers: descending PART D: sigmoid colon - SIGMOID COLON RANDOM PART E: rectum - RECTAL BX . 02 Diagnosis: A. Colonic mucosa, right colon random biopsies: - Small focus of mild active chronic colitis. . B. Colonic mucosa, transverse colon random biopsies: - Focal mild active chronic colitis with hyperplastic mucosal-associated lymphoid aggregate. . C. Colonic mucosa, descending colon random biopsies: - Several hyperplastic mucosal -associated lymphoid aggregates - no evidence of active chronic colitis. . D. Colonic mucosa, sigmoid colon random biopsies: - Several hyperplastic mucosal -associated lymphoid aggregates - no evidence of active chronic colitis. . E. Colorectal mucosa, rectal biopsies: - Several hyperplastic mucosal -associated lymphoid aggregates - no evidence of active chronic colitis. . (XAVIER:kathryn; 04/11/2020) [facility] 04/11/2020 1719 Local . 02 Comment: Sections of the right colon random biopsy reveal several segments of colonic mucosa, one of which shows a small focus of mild active chronic colitis. The other biopsy segments appear relatively normal. . Sections of the transverse colon biopsy reveal several segments of colonic mucosa, one of which shows a focus of mild active chronic colitis. Another biopsy segment shows a hyperplastic mucosal-associated lymphoid aggregate. The remaining biopsy segments appear relatively normal. . Sections of the descending colon, sigmoid colon, and rectal biopsies appear similar and reveal multiple segments of colorectal mucosa containing several hyperplastic mucosal-associated lymphoid aggregates, some of which are large. They show no evidence of an active chronic colitis. There is no dysplasia present within any of the biopsies. . (XAVIER:kathryn; 04/11/2020) . 02 Electronically signed: . Dylan Britt MD, Pathologist NPI- [id number] . 01 Gross description: . A. The specimen is received in formalin labeled "[place], Lety, right colon" and consists of multiple fragments of sewell tissue measuring 0.8 x 0.4 x 0.2 cm in aggregate which are entirely submitted in A1. . B. The specimen is received in formalin labeled "[place], Lety, transverse" and consists of multiple fragments of sewell tissue measuring 1.1 x 0.3 x 0.2 cm in aggregate which are entirely submitted in B1. . C. The specimen is received in formalin labeled "[place], Lety, descending biopsy" and consists of multiple fragments of sewell tissue measuring 1.3 x 0.2 x 0.2 cm in aggregate which are entirely submitted in C1. . D. The specimen is received in formalin labeled "[place], Lety, sigmoid" and consists of multiple fragments of sewell tissue measuring 0.8 x 0.4 x 0.2 cm in aggregate which are entirely submitted in D1. . E. The specimen is received in formalin labeled "[place], Lety, rectal BX" and consists of 2 fragments of sewell brown tissue measuring 0.6 x 0.4 x 0.2 cm in aggregate which are entirely submitted in E1. (LINDA; 04/10/2020) JFQ/RUDDY 04/10/2020 1831 Local . 02 Pathologist provided ICD-10: K52.9, Z12.11 . 02 CPT . 159601, 890934, 510858, 902401, 273879 Specimen Comment: A courtesy copy of this report has been sent to [phone], [phone] Specimen Comment: [id number] Specimen Comment: Report sent to / DR JERRY Performed at: 01 [facility] [address], [place] [id number] MD Tobi Ordoñez MD Phone: [phone] Performed at: 02 [facility] [place] [address] [place], [place] [id number] MD Dylan Britt MD Phone: [phone]
== END ==
LOC: MERGE 09:59 → SURG 09:59
PROVIDERS: ATTEND Internal Medicine Gastroenterology
DX: K51.90 Ulcerative colitis, unspecified, without complications (principal)
CPT/HCPCS: 45380; 88305; J2704; J7120